=== PATIENT | female | born 1965 | race Caucasian/White ===

== ENCOUNTER → 2024-09-09 | Outpatient (CLI) | payer BC, SELFPAY ==
--- NOTE | 2024-09-09 | XR_ITS ---
Examination: Diagnostic digital mammography, bilateral Computer aided detection 3-D breast Tomosynthesis, bilateral Date and time of exam: September 09, 2024 1421 hours Compared to mammograms dating to May 09, 2019 INDICATIONS: Palpable lump right breast on clinical breast examination by physician 3 weeks ago, family history breast cancer Technique: Nonmagnified MLO, CC views of the breasts to been obtained, reconstructed from 3-D Tomosynthesis images. R2 computer aided detection program utilized for evaluation of suspicious masses and/or abnormal calcifications. 3-D Tomosynthesis images obtained. Findings: Scattered areas of fibroglandular density No suspicious masses Impression: BI-RADS Category 2: Benign findings Recommend yearly follow-up mammography Recommend 3 month right breast sonogram follow-up if the patient's palpable lump persists
--- NOTE | 2024-09-09 14:00 | XR_ITS ---
Examination: Breast ultrasound, unilateral, right complete Date and time of exam: September 09, 2024 1407 hours INDICATIONS: Palpable lump in the right breast on clinical breast examination by physician 3 weeks ago Technique: Real-time hidalgo scale ultrasonographic imaging performed right breast including all 4 quadrants as well as nipple retroareolar and axillary region. Findings: No cystic or solid mass IMPRESSION: BI-RADS Category 0: Incomplete: Need additional imaging evaluation Recommend diagnostic mammography follow-up
== END | disposition home or self-care (01) ==
PROVIDERS: PCP Family Medicine; Referring Provider Obstetrics & Gynecology; Visit Provider Obstetrics & Gynecology
DX: R92.321 Mammographic fibroglandular density, right breast (principal); R92.8 Other abnormal and inconclusive findings on diagnostic imaging of breast
CPT/HCPCS: 76641; 77062; 77066; G0279

== ENCOUNTER → 2025-02-26 | Outpatient (CLI) | payer BC, SELFPAY ==
--- NOTE | 2025-02-26 09:28 | XR_ITS ---
Examination: Foot, left, 3 views Technique: AP, oblique, lateral views foot, 3 views Date and time of exam: February 26, 2025, 1047 hours INDICATIONS: Heel pain beginning 3 weeks ago. FINDINGS: Mild to moderate bunion deformity. Mild narrowing first metatarsophalangeal joint 5 mm chondral 3 mm posterior bony calcaneal spurs IMPRESSION: 5 mm plantar, 3 mm posterior bony calcaneal spurs
== END | disposition home or self-care (01) ==
LOC: CDIM 09:19
DX: M77.32 Calcaneal spur, left foot (principal)
CPT/HCPCS: 73630